=== PATIENT | male | born 1965 | race Two or more races ===

== ENCOUNTER 2018-05-09 05:25 | Emergency (ER) | payer BC, MEDICAID ==
[~2018-05-09] VITALS: Ht 177.8 cm; Wt 74.8 kg
[2018-05-09 05:31] VITALS: BP 113/62
== END 2018-05-09 07:03 | disposition home or self-care (01) ==
LOC: ER 05:25
DX: M25.512 Pain in left shoulder (principal); I10 Essential (primary) hypertension; E11.9 Type 2 diabetes mellitus without complications
CPT/HCPCS: 73030